=== PATIENT | female | born 1940 | race Two or more races ===

== ENCOUNTER 2025-03-06 19:00 | Emergency (ER) | payer MEDICARE, BC ==
[~2025-03-06] VITALS: Ht 165.1 cm; Wt 68.0 kg
[2025-03-06] MEDS ORDERED: MECLIZINE HCL 25 MG TABLET ONE ×2 (19:25→20:35)
[2025-03-06] MEDS: MECLIZINE HCL 25 MG TABLET PO ONE (19:29)
[2025-03-06 19:37] LABS: PLATELET COUNT (AUTO) 238 K/uL (150-450); RED BLOOD CELL COUNT(AUTO) 4.54 MIL/uL (4.0-5.2); RED CELL DISTRIBUTION WIDTH 16.0 % (11.5-15.0); WHITE BLOOD COUNT (AUTO) 10.1 K/uL (4.3-11.0)
[2025-03-06 19:50] LABS: CALCIUM, SERUM 8.8 mg/dL (8.5-10.1); CREATININE 0.6 mg/dL (0.6-1.3); UREA NITROGEN, BLOOD 18 mg/dL (7-18)
[2025-03-06 20:02] LABS: ASPARTATE AMINOTRANSFERASE 24 U/L (15-37); NT-PRO BNP 130 pg/mL (0-125); TOTAL PROTEIN, SERUM 7.2 g/dL (6.4-8.2)
[2025-03-06 20:08] LABS: SODIUM SERUM 142 mmol/L (136-145)
[2025-03-06] MEDS: POTASSIUM CHLORIDE 20 MEQ POWDER PACKET PO ONE (20:22)
[2025-03-06] MEDS: MECLIZINE HCL 12.5 MG TABLET PO ONE (20:35)
[2025-03-06] MEDS ORDERED: ONDANSETRON HCL/PF 4 MG/2 ML VIAL ONE (21:50)
[2025-03-06] MEDS ORDERED: MECL-159 PO (21:51)
[2025-03-06] MEDS: ONDANSETRON HCL/PF - ER 4 MG/2 ML VIAL IV ONE (21:59)
[2025-03-06 22:01] VITALS: BP 145/81; TEMP 98; O2SAT 96
[2025-03-07] MEDS ORDERED: MECL-159 PO (16:56)
== END 2025-03-06 22:02 | disposition home or self-care (01) ==
LOC: ER 19:03
DX: R42 Dizziness and giddiness (principal); I11.9 Hypertensive heart disease without heart failure; F41.9 Anxiety disorder, unspecified; R06.02 Shortness of breath
CPT/HCPCS: 99285; 96374; 70450; 71045; 93005; 85025; 80048; 80076; 36415; 84484; 83880; 82962; J8597 ×2; J2405 ×2

== ENCOUNTER 2025-03-18 01:43 | Emergency (ER) | payer MEDICARE, BC ==
[~2025-03-18] VITALS: Ht 165.1 cm; Wt 65.3 kg
[~2025-03-18 01:43] MED LIST: MECL-159 PO
[2025-03-18 02:14] LABS: PLATELET COUNT (AUTO) 222 K/uL (150-450); RED BLOOD CELL COUNT(AUTO) 4.49 MIL/uL (4.0-5.2); RED CELL DISTRIBUTION WIDTH 16.7 % (11.5-15.0); WHITE BLOOD COUNT (AUTO) 10.4 K/uL (4.3-11.0)
[2025-03-18 02:19] LABS: CALCIUM, SERUM 8.8 mg/dL (8.5-10.1); CREATININE 0.8 mg/dL (0.6-1.3); SODIUM SERUM 143 mmol/L (136-145); UREA NITROGEN, BLOOD 22 mg/dL (7-18)
[2025-03-18 02:25] LABS: ASPARTATE AMINOTRANSFERASE 15 U/L (15-37); TOTAL PROTEIN, SERUM 6.8 g/dL (6.4-8.2)
[2025-03-18 02:51] VITALS: BP 149/70; TEMP 98; O2SAT 94
== END 2025-03-18 02:54 | disposition home or self-care (01) ==
LOC: ER 01:47
DX: I11.9 Hypertensive heart disease without heart failure (principal)
CPT/HCPCS: 36415; 71045-TC; 80053-TC; 83735-TC; 84484-TC; 85025-TC